=== PATIENT | male | born 1980 | race Caucasian/White ===

== ENCOUNTER 2016-09-10 10:40 | Emergency (ER) | payer OTHER ==
[2016-09-10 10:52] VITALS: BP 132/74; PULSE 90; RESP 20; TEMP 99.1
[2016-09-10] MEDS ORDERED: GELATIN SPONGE,ABSORB (SMALL) 1 EACH SPONGE TOPICAL STA (12:17)
--- NOTE | 2016-09-10 12:27 | XR ---
EXAMINATION TYPE: XR finger LT DATE OF EXAM: 09/10/2016 COMPARISON: NONE HISTORY: Left middle finger laceration. TECHNIQUE: 3 views of the middle finger were obtained radiographically. FINDINGS: Soft tissue laceration and swelling are seen of the distal third phalanx without continuity with the osseous cortex. No cortex irregularity, fracture, or radiopaque foreign body. Remainder of the visualized osseous structures are unremarkable. IMPRESSION: Soft tissue laceration and swelling of the distal third digit with no evidence of fractur e or radiopaque foreign body.
[2016-09-10] MEDS ORDERED: ACETAMINOPHEN TAB 500 MG TAB PO STA (12:28)
--- NOTE | 2016-09-10 12:29 | ED ---
Wound/Laceration HPI - General Chief Complaint: Wound/Laceration Stated Complaint: left hand finger laceration-[facility] Time Seen by Provider: 09/10/16 12:02 Source: patient, RN notes reviewed, old records reviewed Mode of arrival: ambulatory Limitations: no limitations - History of Present Illness Initial Comments: This is a 35-year-old male presenting to emergency Department chief complaint of a slicing the tip of his left middle finger off while work. 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 He states his tetanus is up-to- date. He denies any decreased range of motion in the finger or hand. Patient reports that he's supposed to go back to work after this.Patient denies any recent fever, chills, shortness of breath, chest pain, back pain, abdominal pain , nausea vomiting, numbness or tingling, dysuria or hematuria, constipation or diarrhea, headaches or visual changes, or any other current symptoms - Related Data Home Medications Medication Instructions Recorded Confirmed Multivitamin [Men's Multi-Vitamin] 1 each PO DAILY 11/22/14 11/27/14 Previous Rx's Medication Instructions Recorded Cephalexin [Keflex] 500 mg PO Q8HR #21 cap 09/10/16 Allergies Allergy/AdvReac Type Severity Reaction Status Date / Time amoxicillin Allergy Unknown Verified 09/10/16 10:52 Childhood ampicillin Allergy Unknown Verified 09/10/16 10:52 Childhood Penicillins Allergy Unknown Verified 09/10/16 10:52 Childhood Review of Systems ROS Statement: Those systems with pertinent positive or pertinent negative responses have been documented in the HPI. ROS Other: All systems not noted in ROS Statement are negative. Past Medical History Additional Past Medical History / Comment(s): Crohn 's disease History of Any Multi-Drug Resistant Organisms: MRSA Date of last positivie culture/infection: 2010 MDRO Source:: arm Past Surgical History: Bowel Resection, Orthopedic Surgery Additional Past Surgical History / Comment(s): right elbow, right heel reconstructed Past Anesthesia/Blood Transfusion Reactions: No Reported Reaction Past Psychological History: No Psychological Hx Reported Smoking Status: Never smoker Past Alcohol Use History: None Reported Past Drug Use History: None Reported - Past Family History Brother(s) Family Medical History: Cancer General Exam - General Exam Comments Initial Comments: Well-appearing 35-year-old male. No acute distress. Limitations: no limitations General appearance: alert, in no apparent distress Head exam: Present: atraumatic, normocephalic, normal inspection Eye exam: Present: normal appearance, PERRL, EOMI. Absent: scleral icterus, conjunctival injection, periorbital swelling ENT exam: Present: normal exam, mucous membranes moist Neck exam: Present: normal inspection. Absent: tenderness, meningismus, lymphadenopathy Respiratory exam: Present: normal lung sounds bilaterally. Absent: respiratory distress, wheezes, rales, rhonchi, stridor Cardiovascular Exam: Present: regular rate, normal rhythm, normal heart sounds. Absent: systolic murmur, diastolic murmur, rubs, gallop, clicks GI/Abdominal exam: Present: soft, normal bowel sounds. Absent: distended, tenderness, guarding, rebound, rigid Extremities exam: Present: normal inspection, full ROM, normal capillary refill. Absent: tenderness, pedal edema, joint swelling, calf tenderness Left Elbow exam: Present: normal inspection, full ROM Forearm Wrist exam: Present: normal inspection, full ROM Hand Wrist exam: Present: full ROM. Absent: normal inspection (Patient has the distal lateral third of the middle finger tip amputated. There is the distal end of the nail which is also amputated. Nailbed is intact. Patient has normal sensation distally and full range of motion.) Neuro motor exam: Present: wrist extension intact, thumb opposition intact, thumb IP flexion intact, thumb adduction intact, fingers 2-5 abduction intact Neurosensory exam: Present: 2-point discrimination Vascular: Present: normal capillary refill Back exam: Present: normal inspection, full ROM Neurological exam: Present: alert, oriented X3, CN II-XII intact Psychiatric exam: Present: normal affect, normal mood Skin exam: Present: warm, dry, intact, normal color. Absent: rash Course Vital Signs 09/10/16 10:50 Temperature 99.1 F Pulse Rate 90 Respiratory 20 Rate Blood Pressure 132/74 O2 Sat by Pulse 99 Oximetry Medical Decision Making - Medical Decision Making This is a 35-year-old male presenting to emergency Department chief complaint of a slicing the tip of his left middle finger off while work. 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 He states his tetanus is up-to- date. He denies any decreased range of motion in the finger or hand. Patient reports that he's supposed to go back to work after this. Patient was given Gelfoam and tube gauze was applied over the finger. Discussed keeping the tube gauze on for the next 24-48 hours. Patient agrees to treatment plan will comply. Return parameters were discussed. - Radiology Data Radiology results: report reviewed X-ray of the finger was reviewed and shows no evidence of fracture. Evidence of laceration and soft tissue swelling. Disposition Clinical Impression: Amputation of finger tip Disposition: HOME SELF-CARE Condition: Good Instructions: Finger Amputation (ED), Finger Laceration (ED) Additional Instructions: Patient advised to keep the tube gauze on for the next 24 hours. Afterwards patient needs to keep the wound covered at all times. Return to the emergency department if any alarming signs or symptoms occur. Patient also recommended to complete antibiotic dose. Prescriptions: Cephalexin [Keflex] 500 mg PO Q8HR #21 cap Referrals: None,Stated [Primary Care Provider] - 1-2 days Trung Menendez DO [Doctor of Osteopathic Medicine] - 1-2 days Time of Disposition: 12:37
== END 2016-09-10 12:50 | disposition home or self-care (01) ==
LOC: EC 10:40
DX: S68.113A Complete traumatic metacarpophalangeal amputation of left middle finger, initial encounter (principal); Z79.899 Other long term (current) drug therapy; Z88.0 Allergy status to penicillin; Z98.890 Other specified postprocedural states; W45.8XXA Other foreign body or object entering through skin, initial encounter; Y92.69 Other specified industrial and construction area as the place of occurrence of the external cause; Y93.89 Activity, other specified; Y99.0 Civilian activity done for income or pay
CPT/HCPCS: 99283

== ENCOUNTER 2017-08-22 20:39 | Emergency (ER) | payer OTHER ==
[2017-08-22 21:11] VITALS: RESP 18
[2017-08-22] MEDS ORDERED: KETOROLAC 30 MG/ML 1 ML VIAL IM STA (21:27)
--- NOTE | 2017-08-22 21:31 | XR ---
EXAMINATION TYPE: XR chest 2V DATE OF EXAM: 08/22/2017 COMPARISON: Prior chest 10/11/2014 HISTORY: Cough and congestion TECHNIQUE: Frontal and lateral views of the chest are obtained. FINDINGS: There is no focal air space opacity, pleural effusion, or pneumothorax seen. The cardiac silhouette size is within normal limits. The osseous structures are intact. There is bronchial wall thickening. IMPRESSION: Correlate for reactive airways disease, bronchitis
--- NOTE | 2017-08-22 22:09 | ED ---
General Adult HPI - General Chief complaint: Upper Respiratory Infection Stated complaint: congestion Time Seen by Provider: 08/22/17 21:07 Source: patient Mode of arrival: ambulatory Limitations: no limitations - History of Present Illness Initial comments: This a 36-year-old male with no past medical history who presents today for chief complaint of congestion, cough, sputum production, headache, chills and body aches. He describes the headache as a very dull ache that is located to the frontal portion. 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 Pt was worried that this caused his symptoms or that he had the flu. Pt describes sputum as yellowish-in color. Pt denies hemoptysis, CP, shortness of breath, wheezing, edema, pharyngitis, sinus pressure, diarrhea, constipation, urgency, frequency, dysuria, confusion, fever, neck stiffness, muscles weakness, ataxia, back pain, abdominal pain, nausea or vomiting, numbness or tingling, dysuria or hematuria, or visual changes, or any other complaints. Pt states that these feels like when he has had a cold in the past. - Related Data Previous Rx's Medication Instructions Recorded Sulfamethox-Tmp 800-160Mg [Bactrim 1 tab PO Q12HR #14 tab 05/28/17 DS 800-160 mg] Ibuprofen [Motrin] 600 mg PO Q6HR PRN 5 Days #20 tab 08/22/17 Pseudoephedrine HCl [Sudafed] 60 mg PO Q6HR PRN 5 Days #20 tab 08/22/17 Allergies Allergy/AdvReac Type Severity Reaction Status Date / Time amoxicillin Allergy Unknown Verified 08/22/17 20:58 Childhood ampicillin Allergy Unknown Verified 08/22/17 20:58 Childhood Penicillins Allergy Unknown Verified 08/22/17 20:58 Childhood Review of Systems ROS Statement: Those systems with pertinent positive or pertinent negative responses have been documented in the HPI. ROS Other: All systems not noted in ROS Statement are negative. Constitutional: Reports: chills. Denies: fever Eyes: Denies: eye pain, vision change ENT: Reports: as per HPI. Denies: ear pain, throat pain Respiratory: Reports: as per HPI, cough. Denies: dyspnea, wheezes, hemoptysis Cardiovascular: Denies: chest pain, palpitations, edema Endocrine: Denies: fatigue Gastrointestinal: Denies: abdominal pain, nausea, vomiting, diarrhea, constipation Genitourinary: Denies: urgency, frequency, hematuria Musculoskeletal: Denies: back pain Skin: Denies: rash Past Medical History Additional Past Medical History / Comment(s): Crohn 's disease History of Any Multi-Drug Resistant Organisms: MRSA Date of last positivie culture/infection: 2010 MDRO Source:: arm Past Surgical History: Bowel Resection, Orthopedic Surgery Additional Past Surgical History / Comment(s): right elbow, right heel reconstructed Past Anesthesia/Blood Transfusion Reactions: No Reported Reaction Past Psychological History: No Psychological Hx Reported Smoking Status: Never smoker Past Alcohol Use History: None Reported Past Drug Use History: None Reported - Past Family History Brother(s) Family Medical History: Cancer General Exam - General Exam Comments Initial Comments: General: The patient is awake and alert, in no distress, and does not appear acutely ill. Voice is raspy. Eye: Pupils are equal, round and reactive to light, extra-ocular movements are intact. No nystagmus. There is normal conjunctiva bilaterally. No signs of icterus. Ears, nose, mouth and throat: There are moist mucous membranes and no oral lesions. Nares are not patent, and there is mild post nasal drip Neck: The neck is supple, there is no tenderness or JVD. Cardiovascular: There is a regular rate and rhythm. No murmur, rub or gallop is appreciated. Respiratory: Lungs are clear to auscultation, respirations are non-labored, breath sounds are equal. No wheezes, stridor, rales. Some rhonchi with cough Gastrointestinal: [Soft, non-distended, non-tender abdomen without masses or organomegaly noted. There is no rebound or guarding present. No CVA tenderness. Bowel sounds are unremarkable.] Musculoskeletal: Normal ROM, no tenderness. Strength 5/5. Sensation intact. Pulses equal bilaterally 2+. Neurological: A&O x 3. CN II-XII intact, There are no obvious motor or sensory deficits. Coordination appears grossly intact. Speech is normal. Skin: Skin is warm and dry and no rashes or lesions are noted. Psychiatric: Cooperative, appropriate mood & affect, normal judgment. Limitations: no limitations Course Vital Signs 0708/22/17 08/22/17 20:56 21:10 22:15 Temperature 99.1 F 98.4 F Pulse Rate 92 76 Respiratory 16 18 18 Rate Blood Pressure 135/87 147/89 O2 Sat by Pulse 99 96 Oximetry Medical Decision Making - Medical Decision Making This a 36-year-old male with no past medical history who presents today for chief complaint of congestion, cough, sputum production, headache, chills and body aches. He describes the headache as a very dull ache that is located to the frontal portion. 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 Pt was worried that this caused his symptoms or that he had the flu. Pt describes sputum as yellowish-in color. Pt denies hemoptysis, CP, shortness of breath, wheezing, edema, pharyngitis, sinus pressure, diarrhea, constipation, urgency, frequency, dysuria, confusion, fever, neck stiffness, muscles weakness, ataxia, back pain, abdominal pain, nausea or vomiting, numbness or tingling, dysuria or hematuria, or visual changes, or any other complaints. Pt states that these feels like when he has had a cold in the past. CXR revaled bronchial thickening likely bronchitis- and no other acute processes. Exam revealed raspy voice, nares not patents and post nasal drip. Lungs clear to auscultation. Case was discussed in detail with Dr. Neves, at this time we feel this is bronchitis viral vs reactive, with symptomatic treatment. Pt was given IM toradol 30mg which he stated help alleviate the dull headache. He was prescribed Sudafed for congestion and ibuprofen for body aches/headaches as needed. Pt was educated on the importance of wearing PPE including respirator mask. pt understood. pt was instrcuted to f/u with PCP in 1-2days and to return to ED if symptoms worsen. Pt agreed with plan and was d/c in stable condition. VS stable. Disposition Clinical Impression: Bronchitis Disposition: HOME SELF-CARE Condition: Good Instructions: Upper Respiratory Infection (ED) Additional Instructions: Please use medication as discussed. 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 Please follow-up with family doctor in the next 2 days. Please return to emergency room if the symptoms increase or worsen or for any other concerns. Prescriptions: Ibuprofen [Motrin] 600 mg PO Q6HR PRN 5 Days #20 tab PRN Reason: Pain Pseudoephedrine HCl [Sudafed] 60 mg PO Q6HR PRN 5 Days #20 tab PRN Reason: Congestion Is patient prescribed a controlled substance at d/c from ED?: No Referrals: Shamar Art MD [Primary Care Provider] - 1-2 days Time of Disposition: 22:08
[2017-08-22 22:16] VITALS: BP 147/89; PULSE 76; TEMP 98.4
== END 2017-08-22 22:17 | disposition home or self-care (01) ==
LOC: EC 20:39
DX: J40 Bronchitis, not specified as acute or chronic (principal); Z86.14 Personal history of Methicillin resistant Staphylococcus aureus infection; Z88.0 Allergy status to penicillin; Z88.1 Allergy status to other antibiotic agents
CPT/HCPCS: 71046; 99283; 96372; J1885

== ENCOUNTER 2019-09-14 21:30 | Inpatient (IN) | payer OTHER ==
[2019-09-14] MEDS ORDERED: ONDANSETRON 4 MG/2 ML VIAL IVP STA (22:00)
[2019-09-14] MEDS ORDERED: DICYCLOMINE 10 MG/ML 2 ML AMP IM STA (22:18)
[2019-09-14 22:19] LABS: Basophils # (A) 0.1 k/uL (0-0.2); Basophils % (A) 0 %; Eosinophils # (A) 0.2 k/uL (0-0.7); Eosinophils % (A) 2 %; HCT 46.9 % (39.0-53.0); HGB 15.6 gm/dL (13.0-17.5); Lymphocytes # (A) 1.8 k/uL (1.0-4.8); Lymphocytes % (A) 14 %; MCH 29.8 pg (25.0-35.0); MCHC 33.3 g/dL (31.0-37.0); MCV 89.7 fL (80.0-100.0); Mean Platelet Volume 7.7; Monocytes # (A) 0.6 k/uL (0-1.0); Monocytes % (A) 5 %; Neutrophils # (A) 9.8 k/uL (1.3-7.7); Neutrophils % (A) 78 %; Platelet Count 225 k/uL (150-450); RBC 5.23 m/uL (4.30-5.90); RDW 12.7 % (11.5-15.5); WBC 12.7 k/uL (3.8-10.6)
[2019-09-14 22:34] LABS: ALT 99 U/L (4-49); AST 145 U/L (17-59); African American GFR (CKD) >90 (>60 ml/min/1.73 sqM); Albumin 4.7 g/dL (3.5-5.0); Alkaline Phosphatase 79 U/L (38-126); Amylase 41 U/L (30-110); Anion Gap 9 mmol/L; Blood Urea Nitrogen 24 mg/dL (9-20); C Reactive Protein <5.0 mg/L (<10.0); Calcium 9.5 mg/dL (8.4-10.2); Carbon Dioxide 28 mmol/L (22-30); Chloride 101 mmol/L (98-107); Glucose 101 mg/dL (74-99); Non-African American GFR(CKD) >90 (>60 ml/min/1.73 sqM); Potassium 4.2 mmol/L (3.5-5.1); Sodium 138 mmol/L (137-145); Total Bilirubin 0.7 mg/dL (0.2-1.3); Total Protein 7.8 g/dL (6.3-8.2)
--- NOTE | 2019-09-14 22:47 | ED ---
Abdominal Pain HPI - General Chief Complaint: Abdominal Pain Stated Complaint: Crohns flare-up Time Seen by Provider: 09/14/19 21:59 Source: patient Mode of arrival: ambulatory Limitations: no limitations - History of Present Illness Initial Comments: Patient is a 38-year-old man with history of Crohn's disease with bowel resection approximately 5 years ago. He states that over about 24 hours he has had some fatigue and then developed generalized abdominal fullness and cramping. Things became much worse after eating today. He states that he was not having a bowel movement which is unusual for him. He felt that walking made help so he did go for a walk but then the abdominal symptoms were bothering him more so he decided to come here. The patient did have a self-induced episode of vomiting. The abdominal symptoms did briefly improved but now he feels the same. MD Complaint: abdominal pain Onset/Timin -: days(s) Location: diffuse Severity: moderate Quality: cramping, fullness Consistency: constant Improves With: vomiting Worsens With: nothing Associated Symptoms: nausea, vomiting, constipation - Related Data Home Medications Medication Instructions Recorded Confirmed No Known Home Medications 09/14/19 09/14/19 Allergies Allergy/AdvReac Type Severity Reaction Status Date / Time amoxicillin Allergy Unknown Verified 09/14/19 23:19 Childhood ampicillin Allergy Unknown Verified 09/14/19 23:19 Childhood Penicillins Allergy Unknown Verified 09/14/19 23:19 Childhood Review of Systems ROS Statement: Those systems with pertinent positive or pertinent negative responses have been documented in the HPI. ROS Other: All systems not noted in ROS Statement are negative. Constitutional: Denies: fever, chills Respiratory: Denies: cough, dyspnea Cardiovascular: Denies: chest pain, palpitations, edema Gastrointestinal: Reports: as per HPI, abdominal pain, nausea, vomiting, constipation. Denies: diarrhea, hematemesis, melena, hematochezia Genitourinary: Denies: dysuria, hematuria, testicular pain, testicular mass Musculoskeletal: Denies: back pain Skin: Denies: rash Neurological: Denies: headache, weakness, numbness Past Medical History Additional Past Medical History / Comment(s): Crohn 's disease History of Any Multi-Drug Resistant Organisms: MRSA Date of last positivie culture/infection: 2010 MDRO Source:: arm Past Surgical History: Bowel Resection, Orthopedic Surgery Additional Past Surgical History / Comment(s): right elbow, right heel r econstructed Past Anesthesia/Blood Transfusion Reactions: No Reported Reaction Past Psychological History: No Psychological Hx Reported Smoking Status: Never smoker Past Alcohol Use History: None Reported Past Drug Use History: None Reported - Past Family History Brother(s) Family Medical History: Cancer General Exam Limitations: no limitations General appearance: alert, in no apparent distress Head exam: Present: atraumatic, normocephalic Eye exam: Present: normal appearance. Absent: scleral icterus, conjunctival injection ENT exam: Present: normal oropharynx Respiratory exam: Present: normal lung sounds bilaterally. Absent: respiratory distress, wheezes, rales, rhonchi, stridor Cardiovascular Exam: Present: regular rate, normal rhythm, normal heart sounds. Absent: systolic murmur, diastolic murmur, rubs, gallop GI/Abdominal exam: Present: soft, tenderness (Diffuse), guarding, hypoactive bowel sounds. Absent: distended, rebound, rigid, organomegaly, mass, pulsatile mass, hernia Extremities exam: Present: normal inspection, normal capillary refill. Absent: pedal edema, calf tenderness Back exam: Present: normal inspection. Absent: CVA tenderness (R), CVA tenderness (L) Neurological exam: Present: alert Skin exam: Present: warm, dry, intact, normal color. Absent: rash Course Vital Signs 09/14/19 09/15/19 21:32 00:00 Temperature 98.5 F 98.2 F Pulse Rate 75 71 Respiratory 20 16 Rate Blood Pressure 118/75 116/78 O2 Sat by Pulse 98 98 Oximetry Medical Decision Making - Lab Data Result diagrams: 09/16/19 08:19 09/16/19 08:19 Lab Results 09/14/19 09/14/19 09/14/19 Range/Units 22:07 22:07 22:07 WBC 12.7 H (3.8-10.6) k/uL RBC 5.23 (4.30-5.90) m/uL Hgb 15.6 (13.0-17.5) gm/dL Hct 46.9 (39.0-53.0) % MCV 89.7 (80.0-100.0) fL MCH 29.8 (25.0-35.0) pg MCHC 33.3 (31.0-37.0) g/dL RDW 12.7 (11.5-15.5) % Plt Count 225 (150-450) k/uL Neutrophils % 78 % Lymphocytes % 14 % Monocytes % 5 % Eosinophils % 2 % Basophils % 0 % Neutrophils # 9.8 H (1.3-7.7) k/uL Lymphocytes # 1.8 (1.0-4.8) k/uL Monocytes # 0.6 (0-1.0) k/uL Eosinophils # 0.2 (0-0.7) k/uL Basophils # 0.1 (0-0.2) k/uL Sodium 138 (137-145) mmol/L Potassium 4.2 (3.5-5.1) mmol/L Chloride 101 (98-107) mmol/L Carbon Dioxide 28 (22-30) mmol/L Anion Gap 9 mmol/L BUN 24 H (9-20) mg/dL Creatinine 0.95 (0.66-1.25) mg/dL Est GFR (CKD-EPI)AfAm >90 (>60 ml/min/1.73 sqM) Est GFR (CKD-EPI)NonAf >90 (>60 ml/min/1.73 sqM) Glucose 101 H (74-99) mg/dL Calcium 9.5 (8.4-10.2) mg/dL Total Bilirubin 0.7 (0.2-1.3) mg/dL AST 145 H (17-59) U/L ALT 99 H (4-49) U/L Alkaline Phosphatase 79 (38-126) U/L C-Reactive Protein <5.0 (<10.0) mg/L Total Protein 7.8 (6.3-8.2) g/dL Albumin 4.7 (3.5-5.0) g/dL Amylase 41 (30-110) U/L Lipase 121 (23-300) U/L Urine Color Yellow Urine Appearance Clear (Clear) Urine pH 6.5 (5.0-8.0) Ur Specific [place] 1.027 (1.001-1.035) Urine Protein Negative (Negative) Urine Glucose (UA) Negative (Negative) Urine Ketones 2+ H (Negative) Urine Blood Negative (Negative) Urine Nitrite Negative (Negative) Urine Bilirubin Negative (Negative) Urine Urobilinogen <2.0 (<2.0) mg/dL Ur Leukocyte Esterase Negative (Negative) Disposition Clinical Impression: Abdominal pain, Small bowel obstruction, Ileitis Disposition: ADMITTED IP TO THIS HOSP Condition: Fair Is patient prescribed a controlled substance at d/c from ED?: No
--- NOTE | 2019-09-14 22:56 | XR ---
EXAMINATION TYPE: XR KUB DATE OF EXAM: 09/14/2019 COMPARISON: 04/08/2014 HISTORY: Abdominal pain TECHNIQUE: 2 views upright FINDINGS: There is no sign of intestinal obstruction or pneumoperitoneum. Fecal pattern is normal. Th ere is no evidence of a mass. IMPRESSION: Nonacute abdomen. No adverse change. There is clearing of the distended small bowel loop in the mid abdomen compared to old exam.
[2019-09-14] MEDS ORDERED: SODIUM CHLORIDE 0.9% 1,000 ML IV ONE (23:15)
[2019-09-14 23:33] LABS: Appearance,Urine Clear (Clear); Bilirubin,Urine Negative (Negative); Blood,Urine Negative (Negative); Color,Urine Yellow; Glucose,Urine (UA) Negative (Negative); Ketones,Urine 2+ (Negative); Leukocyte Esterase,Urine Negative (Negative); Nitrite,Urine Negative (Negative); PH, Urine 6.5 (5.0-8.0); Protein,Urine Negative (Negative); Specific Gravity,Urine 1.027 (1.001-1.035); Urobilinogen,Urine <2.0 mg/dL (<2.0)
[2019-09-15] MEDS ORDERED: KETOROLAC 30 MG/ML 1 ML VIAL IVP STA
--- NOTE | 2019-09-15 00:47 | CT ---
EXAMINATION TYPE: CT abdomen pelvis wo con DATE OF EXAM: 09/15/2019 COMPARISON: 02/23/2014 HISTORY: abd pain crohns flare-up CT DLP: 521.5 mGycm Automated exposure control for dose reduction was used. Images were obtained from the diaphragm to the floor the pelvis with no contrast. Lung bases are clear. There is no pleural effusion. Heart size is normal. There is no pericardial eff usion. Liver spleen pancreas gallbladder appear normal. Bile ducts are not dilated. Stomach is intact. There is no adrenal mass. Kidneys have normal size and contour. There is no hydronephrosis. Ureters a re not dilated. There is no retroperitoneal adenopathy. Bladder distends smoothly. There is no inguin al hernia. There is no free fluid in the pelvis. There are some dilated fluid-filled small bowel loops in the mid abdomen. Distal ileum is dilated up to 4.1 cm. There are surgical clips apparently from resection of the ascending colon. I see no obstru cting lesion. There is fairly normal fecal pattern in the descending colon and rectosigmoid colon. Tr ansverse colon is intact. Transition point of the dilated bowel is at the surgery site of the ileocol ic anastomosis. There is some wall thickening of the distal ileum up to 10 mm. Lumbar vertebra have normal spacing and alignment. Posterior elements are intact. There is no nirmala citlaly fracture. Bony pelvis is intact. There is no evidence of free air. There is no ascites. There is no mesenteric edema. IMPRESSION: Dilated small bowel suggestive of mechanical small bowel obstruction at the ileocolic anastomosis whi ch is a change compared to old exam. Distal ileum wall thickening that could relate to inflammatory b owel disease.
[2019-09-15] MEDS ORDERED: NALOXONE 0.4 MG/ML 1 ML VIAL IV PRN (01:42)
[2019-09-15] MEDS ORDERED: ACETAMINOPHEN TAB 325 MG TAB PO PRN (01:42)
[2019-09-15] MEDS: SODIUM CHLORIDE 0.9% 1,000 ML IV SCH ×3 (02:11→18:30)
[2019-09-15] MEDS: KETOROLAC 30 MG/ML 1 ML VIAL IVP PRN ×2 (04:49→07:45)
--- NOTE | 2019-09-15 05:01 | XR ---
EXAMINATION TYPE: XR chest 1V portable DATE OF EXAM: 09/15/2019 COMPARISON: 08/22/2017 HISTORY: Check tube placement TECHNIQUE: FINDINGS: Heart is normal. Lungs are clear of consolidation. There is no heart failure. There is naso gastric tube looped in the gastric fundus. There is no pleural effusion. IMPRESSION: No active cardiopulmonary disease. Normal heart. No change. NG tube in good position. Sabi st unchanged compared to old exam.
[2019-09-15] MEDS ORDERED: methylPREDNISolone SOD SUCCI 125 MG/2 ML VIAL IV STA (06:55)
[2019-09-15] MEDS: ONDANSETRON 4 MG/2 ML VIAL IVP PRN (07:45)
--- NOTE | 2019-09-15 07:45 | XR ---
EXAMINATION TYPE: XR chest 1V DATE OF EXAM: 09/15/2019 COMPARISON: 09/15/2019 HISTORY: NG tube placement TECHNIQUE: Single frontal view of the chest is obtained. FINDINGS: There is no focal air space opacity, pleural effusion, or pneumothorax seen. The cardiac silhouette size is within normal limits. The osseous structures are intact. NG tube seen with the t ip in the left upper quadrant likely near the level of the gastric fundus or body. Heart size normal. Vague nodule lateral mid lung was not seen on the previous exam and therefore likely represents nipp le shadow. IMPRESSION: 1. NG tube appears in good position. 2. Vague nodule left upper lobe was not present on the recent prior exam and therefore likely represe nts nipple shadow.
[2019-09-15] MEDS: sulfaSALAzine 500 MG TAB PO SCH ×4 (11:10→21:43)
[2019-09-15] MEDS ORDERED: MORPHINE SULFATE 4 MG/ML SYRINGE IVP PRN (11:37)
[2019-09-15] MEDS ORDERED: methylPREDNISolone SOD SUCCI 125 MG/2 ML VIAL IV SCH (12:00)
--- NOTE | 2019-09-15 13:37 | P.GSCN ---
History of Present Illness Consult date: 09/15/19 Reason for Consult: Ileitis with obstruction History of present illness: 38-year-old male with history of Crohn's disease. States he underwent bowel resection approximately 5 years ago. Looking back at the computer it sounds like he had segmental resection 2009. Last colonoscopy November 2014. Patient with strong family history of colon cancer and a younger brother and grandfather as well. He is not on any maintenance medications for his Crohn's disease. Came to the hospital after experiencing sudden pain yesterday evening. He desc ribes bloating and cramping. Some nausea. Self-induced vomiting. Says his symptoms remind him of his initial presentation with Crohn's. He is status post that he has had 2 other episodes since his initial surgery one was treated as an outpatient the other only required an overnight stay. Does feel somewhat better today. White blood cell count 12.7. Sed rate normal. He is afebrile. Review of Systems The patient denies any acute changes in vision or hearing, no dysphagia or odynophagia, no chest pain or shortness of breath, no dysuria or hematuria, no headache, no runny nose, no rectal bleeding or melena, no unexplained weight loss Past Medical History Additional Past Medical History / Comment(s): Crohn 's disease (ileitis) History of Any Multi-Drug Resistant Organisms: MRSA Year Discovered:: 2010 MDRO Source:: arm Past Surgical History: Bowel Resection, Orthopedic Surgery Additional Past Surgical History / Comment(s): right elbow, right heel reconstructed Past Anesthesia/Blood Transfusion Reactions: No Reported Reaction Past Psychological History: No Psychological Hx Reported Smoking Status: Never smoker Past Alcohol Use History: None Reported Past Drug Use History: None Reported Additional Drug Use History / Comment(s): no recent use - Past Family History Brother(s) Family Medical History: Cancer Medications and Allergies Home Medications Medication Instructions Recorded Confirmed Type No Known Home Medications 09/14/19 09/14/19 History Allergies Allergy/AdvReac Type Severity Reaction Status Date / Time amoxicillin Allergy Unknown Verified 09/14/19 23:19 Childhood ampicillin Allergy Unknown Verified 09/14/19 23:19 Childhood Penicillins Allergy Unknown Verified 09/14/19 23:19 Childhood Surgical - Exam Vital Signs Temp Pulse Resp BP Pulse Ox 98.5 F 75 20 118/75 98 09/14/19 21:32 09/14/19 21:32 09/14/19 21:32 09/14/19 21:32 09/14/19 21:32 Physical exam: General: Well-developed, well-nourished HEENT: Normocephalic, sclerae nonicteric Abdomen: Mild distention, mild diffuse tenderness Extremities: No edema Neuro: Alert and oriented Results - Labs 09/14/19 22:07 09/14/19 22:07 Abnormal Lab Results - Last 24 Hours (Table) 09/14/19 09/14/19 09/14/19 Range/Units 22:07 22:07 22:07 WBC 12.7 H (3.8-10.6) k/uL Neutrophils # 9.8 H (1.3-7.7) k/uL BUN 24 H (9-20) mg/dL Glucose 101 H (74-99) mg/dL AST 145 H (17-59) U/L ALT 99 H (4-49) U/L Urine Ketones 2+ H (Negative) Diabetes panel 09/14/19 Range/Units 22:07 Sodium 138 (137-145) mmol/L Potassium 4.2 (3.5-5.1) mmol/L Chloride 101 (98-107) mmol/L Carbon Dioxide 28 (22-30) mmol/L BUN 24 H (9-20) mg/dL Creatinine 0.95 (0.66-1.25) mg/dL Glucose 101 H (74-99) mg/dL Calcium 9.5 (8.4-10.2) mg/dL AST 145 H (17-59) U/L ALT 99 H (4-49) U/L Alkaline Phosphatase 79 (38-126) U/L Total Protein 7.8 (6.3-8.2) g/dL Albumin 4.7 (3.5-5.0) g/dL Calcium panel 09/14/19 Range/Units 22:07 Calcium 9.5 (8.4-10.2) mg/dL Albumin 4.7 (3.5-5.0) g/dL Pituitary panel 09/14/19 Range/Units 22:07 Sodium 138 (137-145) mmol/L Potassium 4.2 (3.5-5.1) mmol/L Chloride 101 (98-107) mmol/L Carbon Dioxide 28 (22-30) mmol/L BUN 24 H (9-20) mg/dL Creatinine 0.95 (0.66-1.25) mg/dL Glucose 101 H (74-99) mg/dL Calcium 9.5 (8.4-10.2) mg/dL Adrenal panel 09/14/19 Range/Units 22:07 Sodium 138 (137-145) mmol/L Potassium 4.2 (3.5-5.1) mmol/L Chloride 101 (98-107) mmol/L Carbon Dioxide 28 (22-30) mmol/L BUN 24 H (9-20) mg/dL Creatinine 0.95 (0.66-1.25) mg/dL Glucose 101 H (74-99) mg/dL Calcium 9.5 (8.4-10.2) mg/dL Total Bilirubin 0.7 (0.2-1.3) mg/dL AST 145 H (17-59) U/L ALT 99 H (4-49) U/L Alkaline Phosphatase 79 (38-126) U/L Total Protein 7.8 (6.3-8.2) g/dL Albumin 4.7 (3.5-5.0) g/dL Assessment and Plan (1) Small bowel obstruction Narrative/Plan: 38-year-old male with history of Crohn's disease. Patient now with small bowel obstruction and ileitis. Likely can be treated nonoperatively. Continue IV steroids. Repeat x-rays tomorrow. Keep nasogastric tube in place. May have ice chips. Continue analgesics. We'll reevaluate tomorrow. Current Visit: Yes Status: Acute Code(s): K56.609 - UNSP INTESTNL OBST, UNSP TO PARTIAL VERSUS COMPLETE OBST SNOMED Code(s): 577808357
--- NOTE | 2019-09-15 14:58 | P.HPIM ---
History of Present Illness 38-year-old was male with known history of coronary of Crohn's disease and the had acute mental resection of the small bowel in 2009 doesn't use any medications for Crohn's disease at home had very of use a few episodes since his surgery came in with complaints of severe crampy lower abdominal pain along with nausea vomiting bloating. Patient is found to have small bowel obstruction at the level of ileocecal area. Patient also has mildly elevated liver enzymes patient liver enzymes are being repeated patient has an NG tube patient has significantly dilated, NG tube is not draining significantly at this time. Patient had leukocytosis with white blood cell count of 12.7 ESR is within normal limits patient is afebrile. Patient was started on systemic steroids gastroneurology and general surgery were consulted patient was started on Toradol will also add the morphine because of uncontrolled pain. Review of Systems REVIEW OF SYSTEMS: CONSTITUTIONAL: No fever, no malaise, no fatigue. HEENT: No recent visual problems or hearing problems. Denied any sore throat. CARDIOVASCULAR: No chest pain, orthopnea, PND, no palpitations, no syncope. PULMONARY: No shortness of breath, no cough, no hemoptysis. GASTROINTESTINAL: As mentioned in HPI NEUROLOGICAL: No headaches, no weakness, no numbness. HEMATOLOGICAL: Denies any bleeding or petechiae. GENITOURINARY: Denies any burning micturition, frequency, or urgency. MUSCULOSKELETAL/RHEUMATOLOGICAL: Denies any joint pain, swelling, or any muscle pain. ENDOCRINE: Denies any polyuria or polydipsia. The rest of the 14-point review of systems is negative. Past Medical History Additional Past Medical History / Comment(s): Crohn 's disease (ileitis) History of Any Multi-Drug Resistant Organisms: MRSA Date of last positivie culture/infection: 2010 MDRO Source:: arm Past Surgical History: Bowel Resection, Orthopedic Surgery Additional Past Surgical History / Comment(s): right elbow, right heel reconstructed Past Anesthesia/Blood Transfusion Reactions: No Reported Reaction Past Psychological History: No Psychological Hx Reported Smoking Status: Never smoker Past Alcohol Use History: None Reported Past Drug Use History: None Reported Additional Drug Use History / Comment(s): no recent use - Past Family History Brother(s) Family Medical History: Cancer Medications and Allergies Home Medications Medication Instructions Recorded Confirmed Type No Known Home Medications 09/14/19 09/14/19 History Allergies Allergy/AdvReac Type Severity Reaction Status Date / Time amoxicillin Allergy Unknown Verified 09/14/19 23:19 Childhood ampicillin Allergy Unknown Verified 09/14/19 23:19 Childhood Penicillins Allergy Unknown Verified 09/14/19 23:19 Childhood Physical Exam Vitals: Vital Signs Temp Pulse Pulse Resp BP BP Pulse Ox 09/15/19 14:51 98.7 F 105 H 20 136/76 94 L 09/15/19 07:00 98.5 F 100 18 146/83 97 09/15/19 02:30 98 F 84 14 116/77 96 09/15/19 00:00 98.2 F 71 16 116/78 98 09/14/19 21:32 98.5 F 75 20 118/75 98 Intake and Output 09/14/19 09/15/19 09/15/19 22:59 06:59 14:59 Intake Total 0 1000 Output Total 300 150 Balance -300 850 Intake: Intake, IV Titration 1000 Amount Sodium Chloride 0.9% 1, 1000 000 ml @ 125 mls/hr IV . Q8H [facility] Rx#:[id number] Oral 0 Output: Gastric Drainage 150 Emesis 300 Other: Voiding Method Toilet # Voids 1 Weight 82.1 kg 82.1 kg PHYSICAL EXAMINATION: GENERAL: The patient is alert and oriented x3, not in any acute distress. Well developed, well nourished. HEENT: Pupils are round and equally reacting to light. EOMI. No scleral icterus. No conjunctival pallor. Normocephalic, atraumatic. No pharyngeal erythema. No thyromegaly. CARDIOVASCULAR: S1 and S2 present. No murmurs, rubs, or gallops. PULMONARY: Chest is clear to auscultation, no wheezing or crackles. ABDOMEN: Soft, nontender, nondistended, normoactive bowel sounds. No palpable organomegaly. Patient has an NG tube in place MUSCULOSKELETAL: No joint swelling or deformity. EXTREMITIES: No cyanosis, clubbing, or pedal edema. NEUROLOGICAL: Gross neurological examination did not reveal any focal deficits. SKIN: No rashes. Results CBC & Chem 7: 09/14/19 22:07 09/14/19 22:07 Labs: Abnormal Lab Results - Last 24 Hours (Table) 08/06/20 08/06/20 08/06/20 Range/Units 22:07 22:07 22:07 WBC 12.7 H (3.8-10.6) k/uL Neutrophils # 9.8 H (1.3-7.7) k/uL BUN 24 H (9-20) mg/dL Glucose 101 H (74-99) mg/dL AST 145 H (17-59) U/L ALT 99 H (4-49) U/L Urine Ketones 2+ H (Negative) Thrombosis Risk Factor Assmnt - Choose All That Apply Each Factor Represents 1 point: Obesity (BMI >25) Thrombosis Risk Factor Assessment Total Risk Factor Score: 1 Thrombosis Risk Factor Assessment Level: Low Risk Assessment and Plan Plan: -Small bowel obstruction with history of Crohn's disease continue with IV steroids, continue with NG tube drainage patient appears to his ameliorate his as well. General surgery will evaluate the patient and gastric torula valid the patient. -Crohn's ileitis: Patient on IV steroids which will be continued -Leukocytosis: Reactive secondary to Crohn's disease and bowel obstruction -Elevated liver enzymes, we'll repeat the levels again tomorrow. DVT prophylaxis with Lovenox. GI prophylaxis with Protonix
[2019-09-15] MEDS: methylPREDNISolone SOD SUCCI 40 MG/ML 1 ML VIAL IV SCH ×2 (16:56→23:44)
[2019-09-15] MEDS: HYDROmorphone 1 MG/ML 1 ML SYRINGE IVP PRN (17:29)
[2019-09-15] MEDS: KETOROLAC 30 MG/ML 1 ML VIAL IVP SCH ×2 (18:29→23:45)
[2019-09-16] MEDS: SODIUM CHLORIDE 0.9% 1,000 ML IV SCH ×3 (02:16→17:00)
[2019-09-16] MEDS: HYDROmorphone 1 MG/ML 1 ML SYRINGE IVP PRN ×4 (04:56→21:43)
[2019-09-16] MEDS: KETOROLAC 30 MG/ML 1 ML VIAL IVP SCH ×3 (05:52→17:00)
--- NOTE | 2019-09-16 07:26 | XR ---
EXAMINATION TYPE: XR abdomen 2V DATE OF EXAM: 09/16/2019 COMPARISON: 09/14/2019 HISTORY: Pain, ileus TECHNIQUE: One view abdominal series FINDINGS: The osseous structures are intact. The bowel gas pattern is nonspecific. NG tube noted and there are persistent dilated small bowel loops particularly with mid abdomen. Calcifications in the pelvis lik debora vascular. Spina bifida occulta lumbosacral junction. NG tube is coiled within the stomach. IMPRESSION: 1. Nonspecific abdomen with dilated small bowel loops correlate for ileus. Partial obstruction not ex cluded.
[2019-09-16] MEDS: sulfaSALAzine 500 MG TAB PO SCH ×3 (08:04→16:59)
[2019-09-16] MEDS: methylPREDNISolone SOD SUCCI 40 MG/ML 1 ML VIAL IV SCH ×2 (08:11→16:21)
[2019-09-16 09:04] LABS: Basophils % (A) 0 %; Eosinophils % (A) 0 %; HCT 44.4 % (39.0-53.0); HGB 14.2 gm/dL (13.0-17.5); Lymphocytes # (A) 1.2 k/uL (1.0-4.8); Lymphocytes % (A) 16 %; MCH 29.4 pg (25.0-35.0); MCV 91.8 fL (80.0-100.0); Mean Platelet Volume 7.6; Monocytes # (A) 0.6 k/uL (0-1.0); Monocytes % (A) 8 %; Neutrophils # (A) 5.8 k/uL (1.3-7.7); Neutrophils % (A) 74 %; Platelet Count 215 k/uL (150-450); RBC 4.84 m/uL (4.30-5.90); RDW 12.9 % (11.5-15.5); WBC 7.8 k/uL (3.8-10.6)
[2019-09-16 09:13] LABS: ALT 54 U/L (4-49); AST 43 U/L (17-59); African American GFR (CKD) >90 (>60 ml/min/1.73 sqM); Albumin 3.5 g/dL (3.5-5.0); Alkaline Phosphatase 58 U/L (38-126); Anion Gap 6 mmol/L; Blood Urea Nitrogen 20 mg/dL (9-20); Calcium 8.4 mg/dL (8.4-10.2); Carbon Dioxide 25 mmol/L (22-30); Chloride 108 mmol/L (98-107); Glucose 113 mg/dL (74-99); Non-African American GFR(CKD) >90 (>60 ml/min/1.73 sqM); Potassium 4.2 mmol/L (3.5-5.1); Sodium 139 mmol/L (137-145); Total Bilirubin 0.9 mg/dL (0.2-1.3); Total Protein 6.1 g/dL (6.3-8.2)
[2019-09-16] MEDS: ONDANSETRON 4 MG/2 ML VIAL IVP PRN (10:38)
[2019-09-16 13:37] LABS: Erythrocyte Sedimentation Rate 10 mm/hr (0-15)
--- NOTE | 2019-09-16 13:58 | P.CONS ---
History of Present Illness - Reason for Consult Consult date: 09/15/19 Crohn's disease Requesting physician: Alyssa Ballard - Chief Complaint Abdominal pain - History of Present Illness 38-year-old male with a medical history significant for Crohn's disease requiring prior surgical resection 5 years ago who presented back to the hospital with complaints of abdominal pain, nausea and vomiting. The patient reports severe abdominal pain diffuse across his abdomen. He reports associated cramping, nausea and vomiting. Patient's last colonoscopy was in 2014. He does not follow-up for his Crohn's disease. He is been seen by the surgical service and suspicion is for segmental bowel resection at that time. On current presentation the patient had computed tomography scan of the abdomen which showed small bowel obstruction at the ileocolonic anastomosis with distal ileal thickening. Laboratory evaluation on presentation significant for WBC 12.7, hemoglobin 15.6, platelet count 225,000 with CRP less than 5. He has not been on any maintenance fundus and and does not follow up with GI as mentioned. Currently on Azulfidine and Solu-Medrol 20 mg every 8 hours. He is had NG tube placed. Review of Systems REVIEW OF SYSTEMS: CONSTITUTIONAL: Denies any fevers, chills, weight change or fatigue. CARDIOVASCULAR: Denies any chest pain, palpitations high or low blood pressures RESPIRATORY: Denies any shortness of breath, hemoptysis or cough. GENITOURINARY: No dysuria or hematuria. MUSCULOSKELETAL: No weakness reported. SKIN: Denies any new rashes or lesions, jaundice or pallor. PSYCHIATRIC: Denies any depression or anxiety. NEUROLOGY: Denies headache, denies any new focal deficits. EARS/NOSE/THROAT: No recent hearing change, congestion, nasal discharge or sore throat. EYES: No pain in eyes, discharge or change in vision. GASTROINTESTINAL: As per HPI. Past Medical History Additional Past Medical History / Comment(s): Crohn 's disease (ileitis) History of Any Multi-Drug Resistant Organisms: MRSA Year Discovered:: 2010 MDRO Source:: arm Past Surgical History: Bowel Resection, Orthopedic Surgery Additional Past Surgical History / Comment(s): right elbow, right heel reconstructed Past Anesthesia/Blood Transfusion Reactions: No Reported Reaction Past Psychological History: No Psychological Hx Reported Smoking Status: Never smoker Past Alcohol Use History: None Reported Past Drug Use History: None Reported Additional Drug Use History / Comment(s): no recent use - Past Family History Brother(s) Family Medical History: Cancer Medications and Allergies Home Medications Medication Instructions Recorded Confirmed Type No Known Home Medications 09/14/19 09/14/19 History Allergies Allergy/AdvReac Type Severity Reaction Status Date / Time amoxicillin Allergy Unknown Verified 09/14/19 23:19 Childhood ampicillin Allergy Unknown Verified 09/14/19 23:19 Childhood Penicillins Allergy Unknown Verified 09/14/19 23:19 Childhood Physical Exam Vitals: Vital Signs Temp Pulse Pulse Resp BP BP Pulse Ox 09/15/19 16:00 20 09/15/19 14:51 98.7 F 105 H 20 136/76 94 L 09/15/19 07:00 98.5 F 100 18 146/83 97 09/15/19 02:30 98 F 84 14 116/77 96 09/15/19 00:00 98.2 F 71 16 116/78 98 09/14/19 21:32 98.5 F 75 20 118/75 98 Intake and Output 09/15/19 09/15/19 09/15/19 06:59 14:59 22:59 Intake Total 0 1000 Output Total 300 150 Balance -300 850 Intake: Intake, IV Titration 1000 Amount Sodium Chloride 0.9% 1, 1000 000 ml @ 125 mls/hr IV . Q8H [facility] Rx#:[id number] Oral 0 Output: Gastric Drainage 150 Emesis 300 Other: Voiding Method Toilet # Voids 1 Weight 82.1 kg On physical examination, patient appears comfortable in no apparent distress. HEAD: Normocephalic, atraumatic. EYES: No scleral icterus. No conjunctival injection. MOUTH: No lesions, tongue midline. NECK: Trachea midline, no gross abnormalities. CHEST: Clear to auscultation with no wheezing or rhonchi appreciated. HEART: Regular rate and rhythm. ABDOMEN: Soft, moderately tender to palpation. Bowel sounds are positive. No organomegaly. No guarding or rigidity. EXTREMITIES: No pedal edema. SKIN: No rashes, no jaundice. NEUROLOGIC: Alert and oriented x3. No focal deficits. Results CBC & Chem 7: 09/16/19 08:19 09/16/19 08:19 Labs: Abnormal Lab Results - Last 24 Hours (Table) 09/14/19 09/14/19 09/14/19 Range/Units 22:07 22:07 22:07 WBC 12.7 H (3.8-10.6) k/uL Neutrophils # 9.8 H (1.3-7.7) k/uL BUN 24 H (9-20) mg/dL Glucose 101 H (74-99) mg/dL AST 145 H (17-59) U/L ALT 99 H (4-49) U/L Urine Ketones 2+ H (Negative) CT scan - abdomen: report reviewed (omputed tomography scan of the abdomen which showed small bowel obstruction at the ileocolonic anastomosis with distal ileal thickening) Assessment and Plan (1) Abdominal pain Narrative/Plan: 38-year-old male with a history of Crohn's disease diagnosed 5 years ago and not on any medical treatments or with any follow-up with gastroenterology. He required segmental colon resection 5 years ago has not followed up since that time. He presented with abdominal pain, nausea and vomiting and CT findings suggestive of ileitis with small bowel obstruction at the ileocolonic anastomosis. Current Visit: Yes Status: Acute Code(s): R10.9 - UNSPECIFIED ABDOMINAL PAIN SNOMED Code(s): 41682883 (2) Ileitis Current Visit: Yes Status: Acute Code(s): K52.9 - NONINFECTIVE GASTROENTERITIS AND COLITIS, UNSPECIFIED SNOMED Code(s): 01224816 (3) Small bowel obstruction Current Visit: Yes Status: Acute Code(s): K56.609 - UNSP INTESTNL OBST, UNSP TO PARTIAL VERSUS COMPLETE OBST SNOMED Code(s): 072592202 Plan: Supportive care Nothing by mouth Nasogastric tube on low intermittent suction Appreciate surgical recommendations Continue Solu-Medrol 20 mg every 8 hours Extensive discussion with the patient will need follow-up after discharge for continued management of Crohn's disease Thank you for allowing us to participate in the care of the patient
[2019-09-16] MEDS: BENZOCAINE/MENTHOL LOZENG 1 EACH LOZENGE MUCOUS MEM PRN (21:45)
--- NOTE | 2019-09-17 00:29 | P.PN ---
Subjective Progress Note Date: 09/16/19 Principal diagnosis: Crohn's disease, small bowel obstruction Patient is seen lying in bed reporting that abdominal pain is somewhat improved. Still not passing any flatus. Objective - Vital Signs Vital signs: Vital Signs Temp 97.9 F 09/16/19 07:00 Pulse 84 09/16/19 07:00 Resp 18 09/16/19 07:00 BP 125/62 09/16/19 07:00 Pulse Ox 95 09/16/19 07:00 Intake & Output 09/15/19 09/16/19 09/16/19 18:59 06:59 18:59 Intake Total 1000 1000 Output Total 150 850 500 Balance 850 -850 500 Intake: IV 1000 Sodium Chloride 0.9% 1, 1000 000 ml @ 125 mls/hr IV . Q8H [facility] Rx#:[id number] Intake, IV Titration 1000 Amount Sodium Chloride 0.9% 1, 1000 000 ml @ 125 mls/hr IV . Q8[facility] Rx#:[id number] Output: Gastric Drainage 150 850 500 Other: Voiding Method Toilet # Voids 1 2 - Exam On physical examination, patient appears comfortable in no apparent distress. HEAD: Normocephalic, atraumatic. EYES: No scleral icterus. No conjunctival injection. MOUTH: No lesions, tongue midline. NECK: Trachea midline, no gross abnormalities. ABDOMEN: Soft, moderately tender to palpation. Bowel sounds are positive. No organomegaly. No guarding or rigidity. EXTREMITIES: No pedal edema. SKIN: No rashes, no jaundice. NEUROLOGIC: Alert and oriented x3. No focal deficits. - Labs CBC & Chem 7: 09/16/19 08:19 09/16/19 08:19 Labs: Abnormal Lab Results - Last 24 Hours (Table) 09/16/19 Range/Units 08:19 Chloride 108 H (98-107) mmol/L Glucose 113 H (74-99) mg/dL ALT 54 H (4-49) U/L C-Reactive Protein 38.0 H (<10.0) mg/L Total Protein 6.1 L (6.3-8.2) g/dL Assessment and Plan (1) Abdominal pain Narrative/Plan: 38-year-old male with a history of Crohn's disease diagnosed 5 years ago and not on any medical treatments or with any follow-up with gastroenterology. He required segmental colon resection 5 years ago has not followed up since that time. He presented with abdominal pain, nausea and vomiting and CT findings suggestive of ileitis with small bowel obstruction at the ileocolonic anastomosis. Current Visit: Yes Status: Acute Code(s): R10.9 - UNSPECIFIED ABDOMINAL PAIN SNOMED Code(s): 02545763 (2) Ileitis Current Visit: Yes Status: Acute Code(s): K52.9 - NONINFECTIVE GASTROENTERITIS AND COLITIS, UNSPECIFIED SNOMED Code(s): 96145274 (3) Small bowel obstruction Current Visit: Yes Status: Acute Code(s): K56.609 - UNSP INTESTNL OBST, UNSP TO PARTIAL VERSUS COMPLETE OBST SNOMED Code(s): 408463393 Plan: Supportive care Nothing by mouth Nasogastric tube on low intermittent suction Appreciate surgical recommendations Continue Solu-Medrol 20 mg every 8 hours Extensive discussion with the patient will need follow-up after discharge for continued management of Crohn's disease Thank you for allowing us to participate in the care of the patient
[2019-09-17] MEDS: sulfaSALAzine 500 MG TAB PO SCH ×4 (00:52→16:45)
[2019-09-17] MEDS: KETOROLAC 30 MG/ML 1 ML VIAL IVP SCH ×3 (00:52→12:01)
[2019-09-17] MEDS: methylPREDNISolone SOD SUCCI 40 MG/ML 1 ML VIAL IV SCH ×3 (00:53→15:46)
[2019-09-17] MEDS: HYDROmorphone 1 MG/ML 1 ML SYRINGE IVP PRN ×5 (03:35→21:33)
[2019-09-17] MEDS: SODIUM CHLORIDE 0.9% 1,000 ML IV SCH ×3 (04:22→15:47)
--- NOTE | 2019-09-17 11:11 | P.PN ---
Subjective Progress Note Date: 09/17/19 Principal diagnosis: Patient still having some discomfort although slightly improved. He did pass flatus. No bowel movement. Slightly less distended. Still with increased nasogastric tube output. He is afebrile. Objective - Vital Signs Vital signs: Vital Signs Temp 98.3 F 09/17/19 07:26 Pulse 67 09/17/19 07:26 Resp 16 09/17/19 07:26 BP 136/84 09/17/19 07:26 Pulse Ox 96 09/17/19 07:26 Intake & Output 09/16/19 09/17/19 09/17/19 18:59 06:59 18:59 Intake Total 1315 923 7825 Output Total 750 Balance 795 429 8623 Intake: IV 6460 865 7015 Sodium Chloride 0.9% 1, 6958 391 8271 000 ml @ 125 mls/hr IV . Q8[facility] Rx#:[id number] Oral 0 Output: Gastric Drainage 750 Other: Voiding Method Toilet # Voids 1 - Exam Abdomen: Soft, mild distention, mild diffuse tenderness - Labs CBC & Chem 7: 09/16/19 08:19 09/16/19 08:19 Assessment and Plan (1) Small bowel obstruction Narrative/Plan: The patient's bowel obstruction slightly improved clinically. Will check small bowel series tomorrow to evaluate degree of narrowing at the terminal ileum/anastomosis. Keep nothing by mouth. Continue nasogastric tube. Current Visit: Yes Status: Acute Code(s): K56.609 - UNSP INTESTNL OBST, UNSP TO PARTIAL VERSUS COMPLETE OBST SNOMED Code(s): 695735809
[2019-09-17] MEDS ORDERED: BENZOCAINE SPRAY 1 CAN MUCOUS MEM PRN (13:49)
--- NOTE | 2019-09-17 14:41 | P.PN ---
Subjective Progress Note Date: 09/16/19 38-year-old with Crohn's disease admitted for obstruction patient had history of Crohn's disease for which patient will steroids patient NG tube with the significant drainage although patient is aiding popsicles and patient is receiving IV fluids at this time patient did not pass gas did not move his bowel s yet. Constitutional: Denied any fatigue denied any fever. Cardio vascular: denied any chest pain, palpitations Gastrointestinal denied any nausea vomiting Pulmonary: Denied any shortness of breath cough Neurologic denied any new focal deficits All inpatient medications were reviewed and appropriate changes in these medications as dictated in the interval history and assessment and plan. Objective - Vital Signs Vital signs: Vital Signs Temp 98.3 F 09/17/19 07:26 Pulse 67 09/17/19 07:26 Resp 16 09/17/19 07:26 BP 136/84 09/17/19 07:26 Pulse Ox 96 09/17/19 07:26 Intake & Output 09/16/19 09/17/19 09/17/19 18:59 06:59 18:59 Intake Total 7205 787 1840 Output Total 750 350 Balance 250 500 650 Intake: IV 5229 362 9506 Sodium Chloride 0.9% 1, 9598 900 6658 000 ml @ 125 mls/hr IV . [facility] Rx#:[id number] Oral 0 Output: Gastric Drainage 750 350 Other: Voiding Method Toilet # Voids 1 - Exam PHYSICAL EXAMINATION: GENERAL: The patient is alert and oriented x3, not in any acute distress. Well developed, well nourished. HEENT: Pupils are round and equally reacting to light. EOMI. No scleral icterus. No conjunctival pallor. Normocephalic, atraumatic. No pharyngeal erythema. No thyromegaly. CARDIOVASCULAR: S1 and S2 present. No murmurs, rubs, or gallops. PULMONARY: Chest is clear to auscultation, no wheezing or crackles. ABDOMEN: Soft, nontender, nondistended, normoactive bowel sounds. No palpable organomegaly. Patient has an NG tube in place MUSCULOSKELETAL: No joint swelling or deformity. EXTREMITIES: No cyanosis, clubbing, or pedal edema. NEUROLOGICAL: Gross neurological examination did not reveal any focal deficits. SKIN: No rashes. - Labs CBC & Chem 7: 09/16/19 08:19 09/16/19 08:19 Assessment and Plan Plan: -Small bowel obstruction with history of Crohn's disease continue with IV s teroids, continue with NG tube drainage patient appears to his ameliorate his as well. Patient has an NG tube in place no surgical intervention is being planned at this time patient still has significant output did not pass gas yet -Crohn's ileitis: Patient on IV steroids which will be continued -Leukocytosis: Reactive secondary to Crohn's disease and bowel obstruction -Elevated liver enzymes, we'll repeat the levels again tomorrow. DVT prophylaxis with Lovenox. GI prophylaxis with Protonix
--- NOTE | 2019-09-17 14:42 | P.PN ---
Subjective 38-year-old with Crohn's disease admitted for obstruction patient had history of Crohn's disease for which patient will steroids patient NG tube with the significant drainage although patient is aiding popsicles and patient is receiving IV fluids at this time patient did not pass gas did not move his bowels yet. 09/17/2019 Patient continued to get better and the patient is passing gas did not move his bowel yet still has significant amount of fluid in the NG tube canister Constitutional: Denied any fatigue denied any fever. Cardio vascular: denied any chest pain, palpitations Gastrointestinal denied any nausea vomiting Pulmonary: Denied any shortness of breath cough Neurologic denied any new focal deficits All inpatient medications were reviewed and appropriate changes in these medications as dictated in the interval history and assessment and plan. Objective - Vital Signs Vital signs: Vital Signs Temp 98.3 F 09/17/19 07:26 Pulse 67 09/17/19 07:26 Resp 16 09/17/19 07:26 BP 136/84 09/17/19 07:26 Pulse Ox 96 09/17/19 07:26 Intake & Output 09/16/19 09/17/19 09/17/19 18:59 06:59 18:59 Intake Total 7402 815 8589 Output Total 750 350 Balance 250 500 650 Intake: IV 0960 630 6340 Sodium Chloride 0.9% 1, 7669 336 1019 000 ml @ 125 mls/hr IV . Q8H [facility] Rx#:[id number] Oral 0 Output: Gastric Drainage 750 350 Other: Voiding Method Toilet # Voids 1 - Exam PHYSICAL EXAMINATION: GENERAL: The patient is alert and oriented x3, not in any acute distress. Well developed, well nourished. HEENT: Pupils are round and equally reacting to light. EOMI. No scleral icterus. No conjunctival pallor. Normocephalic, atraumatic. No pharyngeal erythema. No thyromegaly. CARDIOVASCULAR: S1 and S2 present. No murmurs, rubs, or gallops. PULMONARY: Chest is clear to auscultation, no wheezing or crackles. ABDOMEN: Soft, nontender, nondistended, normoactive bowel sounds. No palpable organomegaly. Patient has an NG tube in place MUSCULOSKELETAL: No joint swelling or deformity. EXTREMITIES: No cyanosis, clubbing, or pedal edema. NEUROLOGICAL: Gross neurological examination did not reveal any focal deficits. SKIN: No rashes. - Labs CBC & Chem 7: 09/16/19 08:19 09/16/19 08:19 Assessment and Plan Plan: -Small bowel obstruction with history of Crohn's disease continue with IV steroids, continue with NG tube drainage patient appears to his ameliorate his as well. Patient has an NG tube in place no surgical intervention is being planned at this time patient patient is improving with Concerta measures and patient did pass gas, until surgery is recommending barium study tomorrow after which patient NG tube will be removed if he continues to get better -Crohn's ileitis: Patient on IV steroids which will be continued -Leukocytosis: Reactive secondary to Crohn's disease and bowel obstruction -Elevated liver enzymes, we'll repeat the levels again tomorrow. DVT prophylaxis with Lovenox. GI prophylaxis with Protonix
[2019-09-17] MEDS: BENZOCAINE/MENTHOL LOZENG 1 EACH LOZENGE MUCOUS MEM PRN (16:51)
--- NOTE | 2019-09-17 22:01 | P.PN ---
Subjective Progress Note Date: 09/17/19 Principal diagnosis: Crohn's disease, small bowel obstruction Patient is seen lying in bed reporting that abdominal pain is improved but is reporting some throat soreness in association with his nasogastric tube. He did report having flatus but no bowel movement yet. Objective - Vital Signs Vital signs: Vital Signs Temp 98.3 F 09/17/19 07:26 Pulse 67 09/17/19 07:26 Resp 16 09/17/19 07:26 BP 136/84 09/17/19 07:26 Pulse Ox 96 09/17/19 07:26 Intake & Output 09/16/19 09/17/19 09/17/19 18:59 06:59 18:59 Intake Total 9531 249 3838 Output Total 750 Balance 636 987 7579 Intake: IV 5293 536 1659 Sodium Chloride 0.9% 1, 3705 067 7362 000 ml @ 125 mls/hr IV . Q8H [facility] Rx#:[id number] Oral 0 Output: Gastric Drainage 750 Other: Voiding Method Toilet # Voids 1 - Exam On physical examination, patient appears comfortable in no apparent distress. HEAD: Normocephalic, atraumatic. EYES: No scleral icterus. No conjunctival injection. MOUTH: No lesions, tongue midline. NECK: Trachea midline, no gross abnormalities. ABDOMEN: Soft, moderately tender to palpation. Bowel sounds are positive. No organomegaly. No guarding or rigidity. EXTREMITIES: No pedal edema. SKIN: No rashes, no jaundice. NEUROLOGIC: Alert and oriented x3. No focal deficits. - Labs CBC & Chem 7: 09/16/19 08:19 09/16/19 08:19 Assessment and Plan (1) Abdominal pain Narrative/Plan: 38-year-old male with a history of Crohn's disease diagnosed 5 years ago and not on any medical treatments or with any follow-up with gastroenterology. He required segmental colon resection 5 years ago has not followed up since that time. He presented with abdominal pain, nausea and vomiting and CT findings suggestive of ileitis with small bowel obstruction at the ileocolonic anastomosis. Current Visit: Yes Status: Acute Code(s): R10.9 - UNSPECIFIED ABDOMINAL PAIN SNOMED Code(s): 43004681 (2) Ileitis Current Visit: Yes Status: Acute Code(s): K52.9 - NONINFECTIVE GASTROENTERITIS AND COLITIS, UNSPECIFIED SNOMED Code(s): 86179361 (3) Small bowel obstruction Current Visit: Yes Status: Acute Code(s): K56.609 - UNSP INTESTNL OBST, UNSP TO PARTIAL VERSUS COMPLETE OBST SNOMED Code(s): 131673071 Plan: Supportive care Nothing by mouth Nasogastric tube on low intermittent suction Appreciate surgical recommendations Continue Solu-Medrol 20 mg every 8 hours Extensive discussion with the patient will need follow-up after discharge for continued management of Crohn's disease Plan is for small bowel follow-through tomorrow for evaluation of anastomotic site narrowing/stricture Thank you for allowing us to participate in the care of the patient
[2019-09-18] MEDS: HYDROmorphone 1 MG/ML 1 ML SYRINGE IVP PRN ×3 (01:49→08:16)
[2019-09-18] MEDS: BENZOCAINE/MENTHOL LOZENG 1 EACH LOZENGE MUCOUS MEM PRN (01:49)
[2019-09-18] MEDS: methylPREDNISolone SOD SUCCI 40 MG/ML 1 ML VIAL IV SCH ×3 (01:50→16:59)
[2019-09-18] MEDS: SODIUM CHLORIDE 0.9% 1,000 ML IV SCH ×3 (01:59→23:03)
[2019-09-18] MEDS: sulfaSALAzine 500 MG TAB PO SCH ×5 (04:10→22:07)
[2019-09-18 08:04] LABS: African American GFR (CKD) >90 (>60 ml/min/1.73 sqM); Anion Gap 5 mmol/L; Blood Urea Nitrogen 12 mg/dL (9-20); C Reactive Protein 19.2 mg/L (<10.0); Calcium 8.4 mg/dL (8.4-10.2); Carbon Dioxide 28 mmol/L (22-30); Chloride 103 mmol/L (98-107); Glucose 102 mg/dL (74-99); Non-African American GFR(CKD) >90 (>60 ml/min/1.73 sqM); Potassium 3.9 mmol/L (3.5-5.1); Sodium 136 mmol/L (137-145)
[2019-09-18] MEDS ORDERED: KETOROLAC 30 MG/ML 1 ML VIAL IVP PRN (11:09)
[2019-09-18] MEDS ORDERED: bisacodyL 10 MG SUPP RECTAL STA (11:11)
[2019-09-18 14:26] VITALS: BMI 27.5
--- NOTE | 2019-09-18 14:36 | FL ---
EXAMINATION TYPE: FL small bowel follow through DATE OF EXAM: 09/18/2019 COMPARISON: CT abdomen pelvis 09/15/2019 HISTORY: Concern for bowel obstruction, ileitis. History of Crohn's and ileitis status post resection . TECHNIQUE: A single barium contrast small bowel follow through is performed. FINDINGS: Drier image of the abdomen shows dilated small bowel loops of the mid upper abdomen with a ir-fluid levels, and no pneumoperitoneum. NG tube was not within the stomach, and floor nurse was charlene led for NG tube adjustment. The small bowel study shows transit to the colon within 4 hours, which is within normal limits howeve r due to patient's history of small bowel bowel resection is likely mildly delayed for this patient. There is normal mucosal fold pattern throughout the small bowel. There is diffuse small bowel dilatat ion. The leisa ileum is not dilated and demonstrates normal mucosal pattern when compressed with paddle . There is no evidence of ileocolic anastomosis narrowing. There is no evidence of any stricture or f illing defect noted. Total fluoroscopy time: 0.24 minutes. IMPRESSION: 1. Diffuse small bowel dilatation likely due to ileus. No evidence of complete small bowel obstructio n. 2. Normal leisa ileum mucosal pattern, with no evidence of ileocolic anastomosis stricture.
--- NOTE | 2019-09-18 15:19 | P.PN ---
Subjective Progress Note Date: 09/18/19 Principal diagnosis: 38-year-old with Crohn's disease admitted for obstruction patient had history of Crohn's disease for which patient will steroids patient NG tube with the signi ficant drainage although patient is aiding popsicles and patient is receiving IV fluids at this time patient did not pass gas did not move his bowels yet. 09/17/2019 Patient continued to get better and the patient is passing gas did not move his bowel yet still has significant amount of fluid in the NG tube canister Constitutional: Denied any fatigue denied any fever. Cardio vascular: denied any chest pain, palpitations Gastrointestinal denied any nausea vomiting Pulmonary: Denied any shortness of breath cough Neurologic denied any new focal deficits All inpatient medications were reviewed and appropriate changes in these medications as dictated in the interval history and assessment and plan. 09/18/2019 Recent is seen and evaluated and follow-up in underwent small bowel x-ray study showing diffuse small bowel dilatation likely due to ileus with no evidence of complete small bowel obstruction and a normal leisa ileum mucosal pattern with no evidence of ileocolic anastomosis stricture. Patient continues to have an NG tube to low suction and nursing staff noted the NG tube was at least [address] and was readjusted. Patient is very anxious about leaving and denies any abdominal discomfort at this time. Surgery and GI following. Patient is maintained on IV steroids and will continue at this time. Awaiting surgical recommendations. Patient is currently nothing by mouth except ice chips and a few popsicles. Currently denies any chest pain, shortness of breath, or palpitations. Patient is afebrile. No reports of nausea or vomiting noted. Objective - Vital Signs Vital signs: Vital Signs Temp 98.9 F 09/18/19 07:25 Pulse 67 09/18/19 07:25 Resp 15 09/18/19 07:25 BP 151/84 09/18/19 07:25 Pulse Ox 94 L 09/18/19 07:25 Intake & Output 09/17/19 09/18/19 09/18/19 18:59 06:59 18:59 Intake Total 1000 0 Output Total 350 Balance 650 0 Weight 82.1 kg Intake: IV 1000 Sodium Chloride 0.9% 1, 1000 000 ml @ 125 mls/hr IV . Q8H [facility] Rx#:[id number] Oral 0 Output: Gastric Drainage 350 Other: Voiding Method Toilet Toilet # Voids 1 - Exam GENERAL: The patient is alert and oriented x3, not in any acute distress. Anxious. Well developed, well nourished. HEENT: Pupils are round and equally reacting to light. EOMI. No scleral icterus. No conjunctival pallor. Normocephalic, atraumatic. No pharyngeal erythema. No thyromegaly. NG tube present CARDIOVASCULAR: S1 and S2 present. No murmurs, rubs, or gallops. PULMONARY: Chest is clear to auscultation, no wheezing or crackles. ABDOMEN: Soft, nontender, nondistended, normoactive bowel sounds. No palpable organomegaly. Patient has an NG tube in place MUSCULOSKELETAL: No joint swelling or deformity. EXTREMITIES: No cyanosis, clubbing, or pedal edema. NEUROLOGICAL: Gross neurological examination did not reveal any focal deficits. SKIN: No rashes. - Labs CBC & Chem 7: 09/16/19 08:19 09/18/19 07:16 Labs: Abnormal Lab Results - Last 24 Hours (Table) 09/18/19 Range/Units 07:16 Sodium 136 L (137-145) mmol/L Glucose 102 H (74-99) mg/dL C-Reactive Protein 19.2 H (<10.0) mg/L Assessment and Plan Assessment: -Small bowel obstruction with history of Crohn's disease continue with IV steroids, continue with NG tube. Patient underwent small bowel x-ray study as mentioned previously. Patient is passing a lot of gas and denies any bowel movements at this time. Patient remains on nothing by mouth with ice chips and popsicles on occasion. GI and surgery following. -Crohn's ileitis: Patient on IV steroids which will be continued -Leukocytosis: Reactive secondary to Crohn's disease and bowel obstruction -Elevated liver enzymes, we'll repeat the levels in a.m. -DVT prophylaxis with Lovenox -GI prophylaxis with Protonix Plan: Continue current medications, management, and symptomatic treatment. Appreciate and await surgical recommendations. Patient to continue with NG tube at this time until cleared by surgery. GI following and continued on IV steroids. Will repeat a.m. labs. Possibility of initiating a diet once cleared by surgery. Further recommendations to follow. Anticipate discharge in 24 hours.
--- NOTE | 2019-09-18 15:22 | P.PN ---
<Arpil Gleason - Last Filed: 09/18/19 15:14> Subjective Progress Note Date: 09/18/19 CHIEF COMPLAINT: Abdominal pain HISTORY OF PRESENT ILLNESS: Patient's abdominal pain is improving. He is passing gas. No bowel movement. Having some nausea. Decrease in his NG tube output. Afebrile. PHYSICAL EXAM: VITAL SIGNS: Reviewed. GENERAL: Well-developed in no acute distress. HEENT: No sclera icterus. Extraocular movements grossly intact. Moist buccal mucosa. Head is atraumatic, normocephalic. ABDOMEN: Soft. Nondistended. mild diffuse tenderness NEUROLOGIC: Alert and oriented. Cranial nerves II through XII grossly intact. ASSESSMENT: 1. Small bowel obstruction: Small bowel series showing. Diffuse small bowel dilation likely due to ileus. No evidence of complete small bowel obstruction. Normal medial ileum mucosal pattern, with no evidence of ileocololic anastomosis stricture. PLAN: -Remove NG tube -Start liquid diet -We will continue to monitor Physician Macadam Raker note has been reviewed by physician. Signing provider agrees with the documented findings, assessment, and plan of care. Objective - Vital Signs Vital signs: Vital Signs Temp 98.9 F 09/18/19 07:25 Pulse 67 09/18/19 07:25 Resp 15 09/18/19 07:25 BP 151/84 09/18/19 07:25 Pulse Ox 94 L 09/18/19 07:25 Intake & Output 09/17/19 09/18/19 09/18/19 18:59 06:59 18:59 Intake Total 1000 0 Output Total 350 Balance 650 0 Weight 82.1 kg Intake: IV 1000 Sodium Chloride 0.9% 1, 1000 000 ml @ 125 mls/hr IV . Q8H [facility] Rx#:[id number] Oral 0 Output: Gastric Drainage 350 Other: Voiding Method Toilet Toilet # Voids 1 - Labs CBC & Chem 7: 09/16/19 08:19 09/18/19 07:16 Labs: Abnormal Lab Results - Last 24 Hours (Table) 09/18/19 Range/Units 07:16 Sodium 136 L (137-145) mmol/L Glucose 102 H (74-99) mg/dL C-Reactive Protein 19.2 H (<10.0) mg/L <Sony Lambert - Last Filed: 09/19/19 07:56> Subjective As above. Patient still passing gas. No bowel movement. Small bowel series reviewed with radiologist. No significant stricture or obstruction noted at this time. We'll remove nasogastric tube. Begin liquid diet. Objective - Vital Signs Vital signs: Vital Signs Temp 98.3 F 09/19/19 01:49 Pulse 53 L 09/19/19 01:49 Resp 16 09/19/19 04:35 BP 114/58 09/19/19 01:49 Pulse Ox 94 L 09/19/19 01:49 Intake & Output 09/18/19 09/19/19 09/19/19 18:59 06:59 18:59 Intake Total 240 Balance 240 Weight 82.1 kg Intake: Oral 240 Other: Voiding Method Toilet Toilet # Voids 2 1 - Labs CBC & Chem 7: 09/16/19 08:19 09/18/19 07:16 Labs: Abnormal Lab Results - Last 24 Hours (Table) 09/18/19 Range/Units 07:16 Sodium 136 L (137-145) mmol/L Glucose 102 H (74-99) mg/dL C-Reactive Protein 19.2 H (<10.0) mg/L Assessment and Plan (1) Small bowel obstruction Current Visit: Yes Status: Acute Code(s): K56.609 - UNSP INTESTNL OBST, UNSP TO PARTIAL VERSUS COMPLETE OBST SNOMED Code(s): 534622044
[2019-09-18] MEDS: PANTOPRAZOLE 40 MG/10 ML VIAL IVP SCH (16:59)
[2019-09-19] MEDS: methylPREDNISolone SOD SUCCI 40 MG/ML 1 ML VIAL IV SCH ×2 (00:45→08:31)
[2019-09-19] MEDS: SODIUM CHLORIDE 0.9% 1,000 ML IV SCH (05:52)
--- NOTE | 2019-09-19 07:23 | P.PN ---
Subjective Progress Note Date: 09/18/19 Principal diagnosis: Crohn's disease, small bowel obstruction Patient is seen lying in bed reporting that abdominal pain continues to be improved. Less soreness in his throat. He continues to pass flatus with no bowel movement. Objective - Vital Signs Vital signs: Vital Signs Temp 98.9 F 09/18/19 07:25 Pulse 67 09/18/19 07:25 Resp 15 09/18/19 07:25 BP 151/84 09/18/19 07:25 Pulse Ox 94 L 09/18/19 07:25 Intake & Output 09/17/19 09/18/19 09/18/19 18:59 06:59 18:59 Intake Total 1000 0 Output Total 350 Balance 650 0 Intake: IV 1000 Sodium Chloride 0.9% 1, 1000 000 ml @ 125 mls/hr IV . Q8H [facility] Rx#:[id number] Oral 0 Output: Gastric Drainage 350 Other: Voiding Method Toilet Toilet # Voids 1 - Exam On physical examination, patient appears comfortable in no apparent distress. HEAD: Normocephalic, atraumatic. EYES: No scleral icterus. No conjunctival injection. MOUTH: No lesions, tongue midline. NECK: Trachea midline, no gross abnormalities. ABDOMEN: Soft, moderately tender to palpation. Bowel sounds are positive. No organomegaly. No guarding or rigidity. EXTREMITIES: No pedal edema. SKIN: No rashes, no jaundice. NEUROLOGIC: Alert and oriented x3. No focal deficits. - Labs CBC & Chem 7: 09/16/19 08:19 09/18/19 07:16 Labs: Abnormal Lab Results - Last 24 Hours (Table) 09/18/19 Range/Units 07:16 Sodium 136 L (137-145) mmol/L Glucose 102 H (74-99) mg/dL C-Reactive Protein 19.2 H (<10.0) mg/L Assessment and Plan (1) Abdominal pain Narrative/Plan: 38-year-old male with a history of Crohn's disease diagnosed 5 years ago and not on any medical treatments or with any follow-up with gastroenterology. He required segmental colon resection 5 years ago has not followed up since that time. He presented with abdominal pain, nausea and vomiting and CT findings suggestive of ileitis with small bowel obstruction at the ileocolonic anastomosis. Patient has small bowel follow-through with findings of dilated small bowel with stricture at the ileocolonic anastomosis with no stricture noted. Current Visit: Yes Status: Acute Code(s): R10.9 - UNSPECIFIED ABDOMINAL PAIN SNOMED Code(s): 47930918 (2) Ileitis Current Visit: Yes Status: Acute Code(s): K52.9 - NONINFECTIVE GASTROENTERITIS AND COLITIS, UNSPECIFIED SNOMED Code(s): 91054630 (3) Small bowel obstruction Current Visit: Yes Status: Acute Code(s): K56.609 - UNSP INTESTNL OBST, UNSP TO PARTIAL VERSUS COMPLETE OBST SNOMED Code(s): 899406795 Plan: Supportive care Diet as per surgical recommendations Nasogastric tube on low intermittent suction Appreciate surgical recommendations Continue Solu-Medrol 20 mg every 8 hours Extensive discussion with the patient will need follow-up after discharge for continued management of Crohn's disease Small bowel follow-through reviewed Thank you for allowing us to participate in the care of the patient
[2019-09-19 08:11] VITALS: BP 143/76; PULSE 56; RESP 18; TEMP 97.8
[2019-09-19] MEDS: sulfaSALAzine 500 MG TAB PO SCH (08:31)
[2019-09-19] MEDS: PANTOPRAZOLE 40 MG/10 ML VIAL IVP SCH (08:31)
[2019-09-19 10:16] LABS: Basophils % (A) 0 %; Eosinophils # (A) 0.1 k/uL (0-0.7); Eosinophils % (A) 1 %; HCT 47.7 % (39.0-53.0); HGB 15.2 gm/dL (13.0-17.5); Lymphocytes # (A) 1.2 k/uL (1.0-4.8); Lymphocytes % (A) 18 %; MCH 28.9 pg (25.0-35.0); MCHC 31.8 g/dL (31.0-37.0); MCV 90.9 fL (80.0-100.0); Mean Platelet Volume 7.8; Monocytes # (A) 0.6 k/uL (0-1.0); Monocytes % (A) 9 %; Neutrophils # (A) 4.5 k/uL (1.3-7.7); Neutrophils % (A) 69 %; Platelet Count 244 k/uL (150-450); RBC 5.25 m/uL (4.30-5.90); RDW 12.7 % (11.5-15.5); WBC 6.5 k/uL (3.8-10.6)
[2019-09-19 10:41] LABS: ALT 31 U/L (4-49); AST 19 U/L (17-59); African American GFR (CKD) >90 (>60 ml/min/1.73 sqM); Anion Gap 10 mmol/L; Blood Urea Nitrogen 14 mg/dL (9-20); Carbon Dioxide 28 mmol/L (22-30); Chloride 100 mmol/L (98-107); Glucose 133 mg/dL (74-99); Non-African American GFR(CKD) >90 (>60 ml/min/1.73 sqM); Sodium 138 mmol/L (137-145)
--- NOTE | 2019-09-19 13:15 | P.PN ---
<April Gleason - Last Filed: 09/19/19 13:13> Subjective Progress Note Date: 09/19/19 CHIEF COMPLAINT: Abdominal pain HISTORY OF PRESENT ILLNESS: Patient's abdominal pain is much better. He had 2 loose stools today. He is tolerating a liquid diet. He is eager for discharge home. He is afebrile. WBC 6.5. Patient cleared by GI service for discharge PHYSICAL EXAM: VITAL SIGNS: Reviewed. GENERAL: Well-developed in no acute distress. HEENT: No sclera icterus. Extraocular movements grossly intact. Moist buccal mucosa. Head is atraumatic, normocephalic. ABDOMEN: Soft. mildly distended. mild diffuse tenderness NEUROLOGIC: Alert and oriented. Cranial nerves II through XII grossly intact. ASSESSMENT: 1. Small bowel obstruction: Small bowel series showing. Diffuse small bowel dilation likely due to ileus. No evidence of complete small bowel obstruction. Normal medial ileum mucosal pattern, with no evidence of ileocololic anastomosis stricture. PLAN: -Patient can be discharged from surgical standpoint -Patient to follow-up with GI service outpatient -Advance diet slowly as tolerated Physician Sales Service Promoter note has been reviewed by physician. Signing provider agrees with the documented findings, assessment, and plan of care. Objective - Vital Signs Vital signs: Vital Signs Temp 97.8 F 09/19/19 08:11 Pulse 56 L 09/19/19 08:11 Resp 18 09/19/19 08:11 BP 143/76 09/19/19 08:11 Pulse Ox 97 09/19/19 08:11 Intake & Output 09/18/19 09/19/19 09/19/19 18:59 06:59 18:59 Intake Total 240 Balance 240 Weight 82.1 kg Intake: Oral 240 Other: Voiding Method Toilet Toilet # Voids 2 1 - Labs CBC & Chem 7: 09/19/19 09:24 09/19/19 09:24 Labs: Abnormal Lab Results - Last 24 Hours (Table) 09/19/19 Range/Units 09:24 Glucose 133 H (74-99) mg/dL <Sony Lambert - Last Filed: 09/19/19 18:25> Subjective As above. Patient doing better. He did have small bowel movements twice today. May discharge. Outpatient follow-up with GI. Objective - Vital Signs Vital signs: Vital Signs Temp 97.8 F 09/19/19 08:11 Pulse 56 L 09/19/19 08:11 Resp 18 09/19/19 08:11 BP 143/76 09/19/19 08:11 Pulse Ox 97 09/19/19 08:11 Intake & Output 09/18/19 09/19/19 09/19/19 18:59 06:59 18:59 Intake Total 240 Balance 240 Weight 82.1 kg Intake: Oral 240 Other: Voiding Method Toilet Toilet # Voids 2 1 - Labs CBC & Chem 7: 09/19/19 09:24 09/19/19 09:24 Labs: Abnormal Lab Results - Last 24 Hours (Table) 09/19/19 Range/Units 09:24 Glucose 133 H (74-99) mg/dL Assessment and Plan (1) Small bowel obstruction Status: Acute Code(s): K56.609 - UNSP INTESTNL OBST, UNSP TO PARTIAL VERSUS COMPLETE OBST SNOMED Code(s): 831905457
[2019-09-19] MEDS ORDERED: predniSONE 20 MG TAB PO SCH (21:00)
[2019-09-20] MEDS ORDERED: PANTOPRAZOLE 40 MG TABLET PO SCH (07:30)
--- NOTE | 2019-09-20 09:15 | P.DS ---
Providers Date of admission: 09/15/19 01:44 Expected date of discharge: 09/20/19 Attending physician: John Adams Consults: 09/15/19 01:43 Consult Physician Routine Consulting Provider: Sony Lambert Reason/Comments: Abdominal pain. Small bowel obstruction. Do you want consulting provider notified?: Yes Primary care physician: Kaelyn Ibanez [facility] Course: Final diagnosis -Small bowel obstruction with history of Crohn's disease -Crohn's ileitis -Leukocytosis: Reactive secondary to Crohn's disease and bowel obstruction -Elevated liver enzymes, improved -DVT prophylaxis -GI prophylaxis Discharge disposition Patient is being discharged in a stable condition with guarded prognosis to home. Patient will follow-up with Dr. Art in the outpatient setting upon discharge. Patient also instructed to follow-up with GI in the outpatient setting. Patient is to continue with prednisone slow taper along with Protonix. Total time taken is greater than 35 minutes. History of present illness This is a 38-year-old male who was recently admitted with Crohn's disease acute exacerbation with the possibility of obstruction and was being closely monitored. Patient initially did receive an NG tube with significant drainage and was seen and evaluated by surgery not recommending any surgical interventions at this time. Patient likely had an ileus and underwent an x-ray of the small bowel showing a normal ileum mucosal pattern with no evidence of ileocolic and no anastomosis stricture. Patient did tolerate clear liquids and was passing gas and having a few loose stools. Patient will continue with steroids along with Protonix in the outpatient setting until GI follow-up. Patient instructed to continue with a full liquid diet for the next few days and advance slowly to low fiber as tolerated. Currently no reports of chest pain, shortness of breath, or palpitations. Patient is afebrile. No reports of nausea or vomiting and patient is tolerating diet. Patient will be discharged home today. On exam vital signs are stable. Temp is 97.8F, pulse is 56, respirations are 18, blood pressure is 143/76, oxygen saturation is 97% on room air. Cardio S1, S2 are muffled. Respiratory system shows diminished breath sounds at the bases with no wheezing or rhonchi noted. Abdomen is soft and nontender. Nervous system shows no focal deficits. Please refer to medication reconciliation sheet for a list of medications. Patient Condition at Discharge: Fair Plan - Discharge Summary New Discharge Prescriptions: New sulfaSALAzine [Azulfidine] 1,000 mg PO QID 14 Days #120 tab predniSONE 10 mg PO DIRECTED 49 Days #140 tab Pantoprazole [Protonix] 40 mg PO AC-BRKFST 30 Days #30 tablet. Discharge Medication List Pantoprazole [Protonix] 40 mg PO AC-BRKFST 30 Days #30 tablet. 09/19/19 [Rx] predniSONE 10 mg PO DIRECTED 49 Days #140 tab 09/19/19 [Rx] sulfaSALAzine [Azulfidine] 1,000 mg PO QID 14 Days #120 tab 09/19/19 [Rx] Follow up Appointment(s)/Referral(s): Ashlie Villasenor PAC [REFERRING] - 09/26/19 8:15 am Shamar Art MD [Primary Care Provider] - 1-2 days (please call office to make appointment) Patient Instructions/Handouts: Abdominal Pain (ED), Bowel Obstruction (DC) Activity/Diet/Wound Care/Special Instructions: Activity Limited until follow-up Follow up with primary care provider upon discharge Follow-up with GI in the outpatient setting in 2 weeks Continue with full liquid diet for the next few days and advance to low fiber Continue with steroids taper until GI follow-up TO WHOM IT MAY CONCERN: PATIENT WAS TREATED WITH OPIATE PAIN MEDICATIONS DURING HOSPITAL ADMISSION FROM 09/15/19- 09/19/19 Discharge Disposition: HOME SELF-CARE
--- NOTE | 2019-09-21 15:37 | CDI ---
Documentation Clarification Form Date: 09/21/19 From: Ana Laura Landon Phone: If you have a question about this query, please contact Iveth Gonzalez Client Success Specialist at [phone] between 8am and 5pm. Admit Date: 09/15/19 Discharge Date:09/19/19 Patient Name: Sony Grimes Visit Number: [id number] ATTENTION: The Clinical Documentation Specialists (CDI) and [facility] Coding Staff appreciate your assistance in clarifying documentation. Please respond to the clarification below the line at the bottom and electronically sign. The CDI & [facility] Coding staff will review the response and follow-up if needed. Please note: Queries are made part of the Legal Health Record. If you have any questions, please contact the author of this message via ITS. Dear Dr. Ballard The patient presented with the following small bowel obstruction and ileitis. Final diagnosis states small bowel obstruction with history of Crohn's disease and Crohn's ileitis. Dr. Lambert documented diffuse small bowel dilation likely due to ileus in his 09/18 progress note. Patient had an ileus is documented in the body of the discharge summary. April Gleason documented diffuse small bowel dilation likely due to ileus in her 09/17 progress note. Documentation in you 09/17 progress note states patient underwent small bowel x-ray study showing diffuse small bowel dilatation likely due to ileus. Crohn's ileitis is documented throughout the record. History/Risk Factors: Crohn's disease, history of bowel resection, Clinical Indicators: Lower abdominal pain, nausea, vomiting, bloating Lab findings: WBC 12.7, BUN 24 Radiology findings: Abd x-ray on 09/20: Dilated small bowel suggestive of mechanical small bowel obstruction at the ileocolic anastomosis which is a change compared to old exam. Distal ileum wall thickening that could relate to inflammatory bowel disease. Vital Signs: T. 98.5, P. 75, R. 20, BP 118/75 Treatment: IV Solu-medrol, p.o. Azulfidine, NG tube, liquid diet In your professional opinion, can you please clarify the cause of the small bowel obstruction? Ileus Associated with Crohn's Not associated Crohn's Crohn's ileitis Other, please specify Unable to determine Associated with Crohn's MTDD
== END 2019-09-19 13:49 | disposition home or self-care (01) | DRG 386 ==
LOC: EC 21:30 → 4SSUR 09-15 01:44
PROVIDERS: ADMIT Hospitalist; ATTEND Hospitalist
PROC: 0D9670Z Drainage of Stomach with Drainage Device, Via Natural or Artificial Opening (ICD-10-PCS; principal; 2019-09-15)
DX: K50.012 Crohn's disease of small intestine with intestinal obstruction (principal); K56.7 Ileus, unspecified; R74.8 Abnormal levels of other serum enzymes; D72.829 Elevated white blood cell count, unspecified; Z90.49 Acquired absence of other specified parts of digestive tract; Z88.0 Allergy status to penicillin; Z86.14 Personal history of Methicillin resistant Staphylococcus aureus infection; Z98.890 Other specified postprocedural states; Z80.0 Family history of malignant neoplasm of digestive organs; Z20.828 Contact with and (suspected) exposure to other viral communicable diseases
CPT/HCPCS: 36415; 71045; 74018; 74019; 74176; 74248; 80048; 80053; 81003; 82150; 83690; 84450; 84460; 85025; 85652; 86140; 96372; 96374; 96375; 99285

== ENCOUNTER 2020-01-22 13:18 | Emergency (ER) | payer OTHER ==
[2020-01-22] MEDS ORDERED: DIPH,PERTUS(ACELL)TETVAC-LF 0.5 ML VIAL IM ONE (14:16)
[2020-01-22] MEDS ORDERED: KETOROLAC 15 MG/ML 1 ML VIAL IM STA (14:16)
--- NOTE | 2020-01-22 14:20 | ED ---
General Adult HPI - General Chief complaint: Wound/Laceration Stated complaint: finger injury/lac Time Seen by Provider: 01/22/20 14:04 Source: patient, RN notes reviewed Mode of arrival: ambulatory Limitations: no limitations - History of Present Illness Initial comments: 39-year-old male presents to the emergency room for a chief complaint of finger injury. Patient injured his right third and fourth digits today. He accidentally closed a dumpster on them. Patient states that he feels like the tip of his third digit is broken. States his fourth digit feels fine but does hurt somewhat. Patient is up-to-date on tetanus. Denies any other injuries. Patient has no other complaints at this time including shortness of breath, chest pain, abdominal pain, nausea or vomiting, headache, or visual changes. - Related Data Previous Rx's Medication Instructions Recorded Pantoprazole [Protonix] 40 mg PO AC-BRKFST 30 Days #30 09/19/19 tablet. predniSONE 10 mg PO DIRECTED 49 Days #140 09/19/19 tab sulfaSALAzine [Azulfidine] 1,000 mg PO QID 14 Days #120 tab 09/19/19 Cephalexin [Keflex] 500 mg PO Q6HR 10 Days #40 cap 01/22/20 Allergies Allergy/AdvReac Type Severity Reaction Status Date / Time amoxicillin Allergy Unknown Verified 01/22/20 13:45 Childhood ampicillin Allergy Unknown Verified 01/22/20 13:45 Childhood Penicillins Allergy Unknown Verified 01/22/20 13:45 Childhood Review of Systems ROS Statement: Those systems with pertinent positive or pertinent negative responses have been documented in the HPI. ROS Other: All systems not noted in ROS Statement are negative. Past Medical History Additional Past Medical History / Comment(s): Crohn 's disease History of Any Multi-Drug Resistant Organisms: MRSA Date of last positivie culture/infection: 2010 MDRO Source:: arm Past Surgical History: Bowel Resection, Orthopedic Surgery Additional Past Surgical History / Comment(s): right elbow, right heel reconstructed Past Anesthesia/Blood Transfusion Reactions: No Reported Reaction Past Psychological History: No Psychological Hx Reported Smoking Status: Never smoker Past Alcohol Use History: None Reported Past Drug Use History: None Reported - Past Family History Brother(s) Family Medical History: Cancer General Exam - General Exam Comments Initial Comments: Right fourth digit: Patient has full range of motion of the right fourth digit. He does have some minimal tenderness in the distal phalanx of the right fourth digit. No lacerations. Sensation intact. Right third digit: Patient has decreased range of motion of the distal flanks of the right third digit secondary to pain however mechanisms are intact. Tenderness to the right third digit distal phalanx. No tenderness to the middle or proximal phalanx. Sensation intact. No lacerations noted. He does have some minimal bleeding from under the nail however nail is intact. Limitations: no limitations General appearance: alert, in no apparent distress Head exam: Present: atraumatic, normocephalic, normal inspection Eye exam: Present: normal appearance, PERRL, EOMI. Absent: scleral icterus, conjunctival injection, periorbital swelling ENT exam: Present: normal exam, mucous membranes moist Neck exam: Present: normal inspection, full ROM. Absent: tenderness, meningismus, lymphadenopathy Respiratory exam: Present: normal lung sounds bilaterally. Absent: respiratory distress, wheezes, rales, rhonchi, stridor Cardiovascular Exam: Present: regular rate, normal rhythm, normal heart sounds. Absent: systolic murmur, diastolic murmur, rubs, gallop, clicks GI/Abdominal exam: Present: soft, normal bowel sounds. Absent: distended, tenderness, guarding, rebound, rigid Course Vital Signs 01/22/20 13:41 Temperature 98.1 F Pulse Rate 81 Respiratory 16 Rate Blood Pressure 109/53 O2 Sat by Pulse 97 Oximetry Medical Decision Making - Medical Decision Making Vitals are stable. Patient presents with injury to the right third digit. He also injured his right fourth digit however this is not as severe. Patient did injure the distal phalanx of his right third digit. No nail avulsion present at this time. X-ray did show acute comminuted minimally displaced fracture through the distal portion of the third distal phalanx. This was cleaned. Given this is a complex fracture nail was not removed. It was dressed and splinted. Patient is up-to-date on tetanus. He was given Ancef and Keflex. He will follow up with orthopedics. He will return here for any worsening symptoms. He does not want any time off work. I discussed this case with attending Dr. Webber who agrees with this assessment and treatment plan. Disposition Clinical Impression: Fracture of distal phalanx of finger of right hand Disposition: HOME SELF-CARE Condition: Good Instructions (If sedation given, give patient instructions): Finger Fracture (ED) Additional Instructions: Please keep the area clean. Monitor for signs of infection such as spreading or streaking redness, drainage, fever, or increased pain. Rest ice and elevate the right hand. Alternate Motrin and Tylenol. Take Tylenol 3 at night while you're not working or driving. Follow-up with orthopedics. Return to the emergency room for any worsening symptoms. Prescriptions: Cephalexin [Keflex] 500 mg PO Q6HR 10 Days #40 cap Is patient prescribed a controlled substance at d/c from ED?: No Referrals: Shamar Art MD [Primary Care Provider] - 1-2 days Remigio Menendez DO [Doctor of Osteopathic Medicine] - 1-2 days Time of Disposition: 15:16
[2020-01-22] MEDS: LIDOCAINE 1% INJ 10MG/ML (20 ML MDV) SQ ONE ×2 (14:27→15:08)
--- NOTE | 2020-01-22 14:35 | XR ---
EXAMINATION TYPE: XR hand complete RT DATE OF EXAM: 01/22/2020 CLINICAL HISTORY: Crushing injury with pain. TECHNIQUE: Frontal, lateral and oblique images of the right hand are obtained. COMPARISON: None. FINDINGS: There is acute comminuted minimally displaced fracture involving distal portion of the thi rd distal phalanx. The joint spaces in the right hand appear within normal limits. The overlying sof t tissue appears unremarkable. IMPRESSION: There is acute comminuted minimally displaced fracture through distal portion of the thi rd distal phalanx.
[2020-01-22] MEDS ORDERED: ceFAZolin 1,000 MG VIAL (IM USE) IM STA (14:44)
[2020-01-22] MEDS ORDERED: ACET/COD 300 MG/30 MG STARTER PACK 6 TAB BTL PO STA (15:16)
[2020-01-22 15:34] VITALS: BP 140/77; PULSE 76; RESP 18; TEMP 98
[2020-01-22] MEDS ORDERED: Acetaminophen-Codeine 300-30mg TAB PO STA (15:36)
== END 2020-01-22 15:39 | disposition home or self-care (01) ==
LOC: EC 13:18
DX: S62.632A Displaced fracture of distal phalanx of right middle finger, initial encounter for closed fracture (principal); S69.91XA Unspecified injury of right wrist, hand and finger(s), initial encounter; Z88.0 Allergy status to penicillin; Z88.1 Allergy status to other antibiotic agents; W22.8XXA Striking against or struck by other objects, initial encounter; Y93.89 Activity, other specified; Y92.89 Other specified places as the place of occurrence of the external cause
CPT/HCPCS: 73130; 99283; 96372 ×2; J0690; J1885